=== PATIENT | male | born 1975 | race Caucasian/White ===

== ENCOUNTER 2023-02-12 11:33 | Observation (INO) ==
--- NOTE | 2023-02-12 11:45 | Emergency Department Note ---
Impression & Plan Deidra-rectal abscess, Low back pain ED Provider Note CHIEF COMPLAINT: Low back pain HISTORY OF PRESENT ILLNESS: This 48-year-old male patient presents to the emergency department [] complaining of pain in the low back which began 10 days ago. The pain was gradual in onset, is now constant and worse with movement. The pain is now radiating into the buttocks and getting progressively worse. Seems to be central buttocks area into the rectum and mildly radiating to the right side. Denies any constipation or diarrhea, but has pain with bowel movements. The patient notes the pain as sharp and a 10/10. The patient has taken Aleve with mild relief of the pain initially, but not anymore. Saw a chiropractor twice who thought the symptoms were secondary to sciatica, but the second time they saw him they were concerned about something different was going on. The patient denies any loss of control of their bowel or bladder functions. There has been no leg numbness or weakness, and no change in sensation. No nausea or vomiting or abdominal pain. No chest pain or shortness of breath. The patient has not had prior back injuries. No dysuria or increased urinary frequency. REVIEW OF SYSTEMS: A review of systems was performed with positives and pertinent negatives listed in the history of present illness. ALLERGIES: NKDA MEDICATIONS: None PMH: Denies significant past medical or surgical history PHYSICAL EXAM: VITALS: Vitals are noted on the nurse's note and reviewed by myself. GENERAL: Appears in pain, but non toxic in appearance and in no acute distress. Non-diaphoretic. SKIN: No obvious evidence for pilonidal abscess, buttocks abscess, or rectal abscess on visual exam. No erythema or fluctuance noted. The skin was without obvious rashes, erythema, edema, or bruising. EYES: Pupils equal round and reactive to light and accommodation. The Extraocul ar movements intact. NECK: Supple without nuchal rigidity. No cervical spine tenderness. No para spinous muscle tenderness. No lymphadenopathy. HEART: Regular rate and rhythm without murmurs gallops or rubs. LUNGS: Clear to auscultation bilaterally without wheezes, rales or rhonchi. ABDOMEN: Positive bowel sounds x 4. Normal tympanic percussion. Soft, nontender, without masses or organomegaly. Mar sign negative. MUSCULOSKELETAL: No muscle atrophy, erythema, or edema noted of the back. There is tenderness over the lower lumbar spinous processes and coccyx and mildly over the bilateral paraspinal muscles of the most inferior portion of the spine. There is no tenderness over the thoracic spine or paraspinous muscles. There are no muscle spasms present. The patient is slow to move around with maximum tenderness with sitting and full flexion of the spine. Negative straight leg raise test. RECTAL EXAM: Permission to perform the exam. Rn Emergency present for exam. No obvious external lesions noted, but there is mild erythema and edema surrounding the rectum. No external hemorrhoids. Normal sphincter tone, but the patient is very tender to palpation with the rectal exam. The patient also has tenderness to palpation surrounding the rectum, but no obvious drainable abscess noted. Internal hemorrhoids are not enlarged. No obvious masses, tears, fistulas, fissures, or other lesion noted, but the exam was difficult due to his degree of discomfort. Stool is brown and Hemoccult negative. NEURO: Patient was alert and oriented to person place and time. Normal sensa tion to light and sharp touch. Deep tendon reflexes 2+ in the lower extremities. Dorsalis pedis pulse 2+ bilaterally. Heel and toe walking is normal. EMERGENCY DEPARTMENT COURSE: I examined the patient. The patient's pain appears more secondary to the rectal area and lower spine and there is concern for perirectal abscess although none is noted on external visual exam. No obvious abscess felt on rectal exam, but exam was difficult due to the patient's degree of discomfort. I do not suspect emergent etiology such as conus medullaris syndrome, cauda equina syndrome, epidural abscess, or epidural hematoma. An IV lock was placed and labs were drawn. He was given 1 L normal saline solut ion bolus. He was given Toradol 15 mg IV for pain followed by morphine 4 mg IV and Zofran 4 mg IV. White blood cell count elevated at 19.18. Hemoglobin normal at 15.5. Sodium 134 and ALT 59, but CMP otherwise unremarkable. Urinalysis was negative. COVID was negative. CT scan of the lumbar spine was reviewed by myself and read by radiology as above and shows mild multilevel degenerative changes, but no acute fracture or subluxation. CT scan of the abdomen pelvis with IV contrast was reviewed by myself and read by radiology as above and shows a posterior perirectal abscess that measures 4.1 x 2.4 cm and extends from the 3:00 to 9 o'clock position. No supralevator component. There is also a 1.7 cm density arising from the anterior aspect of the pancreatic head. This likely reflects lobulated pancreatic parenchyma. A pancreatic lesion is considered less likely. Follow- up pancreatic protocol CT scan in 3 to 6 months is recommended. No other acute abnormalities. I spoke with Deandra CARTER and Dr. Crockett of general surgery who came down to the emergency department to evaluate the patient. They recommended surgical treatment of the patient's perirectal abscess. Please refer to their dictation for further details. He was given Zosyn 4.5 g IV. The patient was taken to the OR in stable condition. DIAGNOSIS: Perirectal abscess Low back pain Past Med/Surg History Medical History No pertinent past medical history Family History Other No pertinent family history Social History Smoking Status: Never smoker Hx Alcohol Use: Yes Alcohol type: beer Hx Substance Use: No Preferred Language: A[place]i Communication Ability: Effective Hearing Ability: Normal Medical Claims Examiner Required: No Beliefs That Will Affect Care: None Current Living Situation: Spouse current occupational status: employed Other Information That Helps Us Care for You: No Feels Safe at Home: Yes Safety Concerns: Feels Safe At This Time Assistive Devices: Glasses Assistive Devices Comment: reading glasses Allergies Allergies Allergy/AdvReac Type Severity Reaction Status Date / Time No Known Allergies Allergy Verified 02/12/23 16:51 Home Meds Home Medications Medication Instructions Recorded Confirmed No Known Home Medications 02/12/23 02/12/23 Results & Data (ED) Vital Signs Vital Signs - 24 hr 02/12/23 11:37 02/12/23 16:38 Temperature 36.6 C 38.4 C H Temperature Source Temporal Artery Scan Oral Pulse Rate 100 H Respiratory Rate 18 18 Respiratory Effort / Characteristics Non-Labored Spontaneous Respiratory Depth Normal Normal Respiratory Pattern Regular Blood Pressure 165/110 H Blood Pressure [Left Arm] 155/94 H Blood Pressure Mean 128 Blood Pressure Mean [Left Arm] 114 Blood Pressure Position [Left Arm] Right Lateral Pulse Oximetry 98 98 Oxygen Delivery Method Room Air Sepsis New/Unexplained Change in Mental Status No Sepsis Action Taken by Nursing No Action Required Laboratory Data 02/12/23 12:30 02/12/23 12:30 Lab Results 02/12/23 02/12/23 02/12/23 Range/Units 12:30 12:30 14:00 WBC 19.18 H (4.8-10.8) K/ul RBC 4.88 (4.70-6.10) M/uL Hgb 15.5 (14.0-18.0) g/dl Hct 44.8 (42.0-52.0) % MCV 91.8 (80.0-100.0) fL MCH 31.8 (25.0-34.0) pg MCHC 34.6 (32.0-36.0) g/dL RDW Std Deviation 39.5 (36.4-46.3) fL RDW Coeff of Ana 11.7 (11.5-14.5) % Plt Count 337 (130-400) K/uL MPV 8.9 L (9.4-12.4) fL Immature Gran % (Auto) 0.9 % Neut % (Auto) 79.2 % Lymph % (Auto) 10.4 % [place] % (Auto) 8.7 % Eos % (Auto) 0.3 % Baso % (Auto) 0.5 % Neut # (Auto) 15.20 H (1.40-6.50) K/uL Lymph # (Auto) 1.99 (1.2-3.4) K/uL [place] # (Auto) 1.67 H (0.11-0.59) K/uL Eos # (Auto) 0.05 (0-0.50) K/uL Baso # (Auto) 0.09 (0-0.2) K/uL Immature Gran # (Auto) 0.18 (0.01-0.20) K/uL Sodium 134 L (136-145) mmol/L Potassium 3.9 (3.5-5.1) mmol/L Chloride 97 L (98-107) mmol/L Carbon Dioxide 29 (21-32) mmol/L Anion Gap 8 (3-11) BUN 15 (6-23) mg/dl Creatinine 1.10 (0.6-1.4) mg/dl Est Cr Clr Drug Dosing 80.8 ml/min Est GFR ( Amer) 90.2 ml/min Est GFR (Non-Af Amer) 77.9 ml/min BUN/Creatinine Ratio 13.6 (10-20) Glucose 98 (70-99(Fasting)) mg/dl Calcium 9.5 (8.5-10.1) mg/dl Total Bilirubin 0.7 (0.2-1.0) mg/dl AST 29 (13-39) U/L ALT 59 H (7-52) U/L Alkaline Phosphatase 81 (34-104) U/L Total Protein 8.0 (6.0-8.3) gm/dl Albumin 4.3 (3.4-5.0) gm/dl Globulin 3.7 (2.5-4.0) gm/dl Albumin/Globulin Ratio 1.2 (0.9-2) Urine Color Yellow Urine Appearance Clear (Clear) Urine pH 5.5 (4.5-7.5) Ur Specific [place] 1.019 (1.000-1.030) Urine Protein Negative (Negative) Urine Glucose (UA) Negative (Negative) Urine Ketones Negative (Negative) Urine Blood Negative (Negative) Urine Nitrite Negative (Negative) Urine Bilirubin Negative (Negative) Urine Urobilinogen Negative (Negative) Ur Leukocyte Esterase Negative (Negative) Administered Medications Sodium Chloride (Nss 1000ml) 1,000 mls @ 100 mls/hr IV .Q10H [facility] Stop: 03/14/23 18:34 Last Admin: 02/12/23 20:14 Dose: 100 mls/hr Documented By: MAC Piperacillin Sod/Tazobactam (Sod 3.375 gm/ Dextrose) 115 mls @ 28.75 mls/hr IV Q8H [facility]; Protocol Stop: 02/22/23 21:59 Last Admin: 02/12/23 20:16 Dose: 28.8 mls/hr Documented By: MAC Discontinued Medications Bupivacaine HCl/Epinephrine Bitart (Bupivacaine/Epinephrine 0.25% 1:200,000 30 Ml Vial) Confirm Administered Dose 30 ml .ROUTE .STK-MED ONE Stop: 02/12/23 17:14 Last Admin: 02/12/23 17:33 Dose: 5 ml Documented By: [id number] Sodium Chloride (Nss 1000ml) 1,000 mls @ 999 mls/hr IV .Q1H1M [facility] Stop: 02/12/23 13:08 Last Infusion: 02/12/23 14:07 Dose: 0 mls/hr Documented By: Admin: 02/12/23 12:35 Dose: 999 mls/hr Documented By: KEREN Piperacillin Sod/Tazobactam Sod (Zosyn) 4.5 gm in 120 mls @ 240 mls/hr IV NOW ONE Stop: 02/12/23 16:42 Last Infusion: 02/12/23 19:54 Dose: 0 mls/hr Documented By: Admin: 02/12/23 17:05 Dose: 240 mls/hr Documented By: [id number] Ioversol (Optiray 350 100ml) 90 ml IV ONCE ONE Stop: 02/12/23 14:04 Last Admin: 02/12/23 14:03 Dose: 90 ml Documented By: CHEPE Ketorolac Tromethamine (Ketorolac Tromethamine 15 Mg/Ml Vial) 15 mg IV NOW STA Stop: 02/12/23 12:09 Last Admin: 02/12/23 12:35 Dose: 15 mg Documented By: KEREN Morphine Sulfate (Morphine Sulfate 4 Mg/Ml 1 Ml Carp\Vial) 4 mg IV NOW STA Stop: 02/12/23 16:30 Last Admin: 02/12/23 19:49 Dose: Not Given Documented By: LYNDON Ondansetron HCl (Ondansetron Inj 2 Mg/Ml 2 Ml Vial) 4 mg IV NOW STA Stop: 02/12/23 16:30 Last Admin: 02/12/23 19:49 Dose: Not Given Documented By: LYNDON Imaging Data Radiologist's Impression: Abdomen/Pelvis CT 02/12/23 12:08 CT OF THE ABDOMEN AND PELVIS WITH CONTRAST CLINICAL HISTORY: right flank pain, rectal pain - eval abscess COMPARISON STUDY: None. TECHNIQUE: Following IV administration of 90 mL of Optiray, axial images of the abdomen and pelvis were obtained from the lung bases to the proximal femurs. Images were reviewed in the axial, sagittal, and coronal planes. IV contrast was administered without complication. Automated exposure control was utilized for the study. A dose lowering technique was utilized adhering to the principles of ALARA. CT DOSE: 425.89 mGy.cm FINDINGS: Lung bases are unremarkable. No pneumatosis, free air or portal venous gas is present. There is hepatic steatosis. No hepatic lesions are identified. There is no biliary or pancreatic ductal dilatation. No pancreatic ductal dilatation is noted. There is a 1.7 cm apparent lobulation of the pancreatic head on axial image 142 of 501. This likely reflects pancreatic parenchyma. A pancreatic lesion is considered less likely. There is no evidence for a bowel o bstruction. Colonic diverticulosis is present. No evidence for acute diverticulitis. The appendix is normal. There is no lymphadenopathy. Note is made of a multiloculated posterior perirectal abscess that measures 4.1 x 2.4 cm. This extends from 3:00 to 9:00. No supralevator component is present. No additional abscesses are present. IMPRESSION: 1. Posterior perirectal abscess that measures 4.1 x 2.4 cm and extends from 3:00 to 9:00. No supralevator component. 2. 1.7 cm density arising from the anterior aspect of the pancreatic head. This likely reflects lobulated pancreatic parenchyma. A pancreatic lesion is considered less likely. A follow-up pancreatic protocol CT in 3-6 months is recommended. 3. No bowel obstruction. Normal appendix. ACT 112: Positive. There are findings on this exam that require communication between the performing entity and the patient following Patient Test Result Information Act ([place] Act 112) guidelines. Electronically signed by: David Mccarty M.D. 02/12/2023 2:[address] 02/12/23 12:08 CT lumbar spine w con CLINICAL HISTORY: low back pain COMPARISON STUDY: No previous studies for comparison. TECHNIQUE: Axial images of the lumbar spine were obtained following intravenous injection of 90 cc of Optiray 350. Sagittal and coronal reconstructions were viewed. Automated exposure control was utilized for the study. A dose lowering technique was utilized adhering to the principles of ALARA. FINDINGS: Alignment of the lumbar spine is anatomic. There is no fracture. There is no osseous lesion. Facet joints are intact. Disc spaces are preserved. Mild multilevel endplate osteophytosis and facet arthrosis is present. The central canal and neural foramen are suboptimally assessed given CT technique. However, there is no evidence for severe central canal stenosis. The abdomen and pelvis CT will be reported separately. IMPRESSION: 1. No lumbar spine fracture or subluxation. 2. Mild multilevel degenerative changes within the lumbar spine. ACT 112: Negative or not required by law. Electronically signed by: David Mccarty M.D. 02/12/2023 2:29 PM Discharge Plan Visit Data Chief Complaint: Back Injury/Pain Stated Complaint: BACK PAIN AND BUTT PAIN SEVERE ED Provider: Lee Cordoba ED Midlevel Provider: Loree Salcedo Discharge Problem: Deidra-rectal abscess, Low back pain Patient Disposition: Being Evaluated by Surgeon Condition: Good Discharge Instructions Interventions: ED Discharge Assessment Last Done: 02/12/23 16:33
[2023-02-12] MEDS ORDERED: KETOROLAC TROMETHAMINE 15 MG/ML VIAL IV STA (12:08)
[2023-02-12] MEDS ORDERED: SODIUM CHLORIDE 0.9% 1000ML 1,000 ML IV STA (12:08)
[2023-02-12 13:07] LABS: Basophils # (auto) 0.09 K/uL (0-0.2); Basophils % (auto) 0.5 %; Eosinophils # (auto) 0.05 K/uL (0-0.50); Eosinophils % (auto) 0.3 %; Hematocrit (blood only) 44.8 % (42.0-52.0); Hemoglobin 15.5 g/dl (14.0-18.0); Immature Granulocytes # (auto) 0.18 K/uL (0.01-0.20); Immature Granulocytes % (auto) 0.9 %; Lymphocytes # (auto) 1.99 K/uL (1.2-3.4); Lymphocytes % (auto) 10.4 %; Mean Corpuscular Hemoglobin 31.8 pg (25.0-34.0); Mean Corpuscular Hgb Conc 34.6 g/dL (32.0-36.0); Mean Corpuscular Volume 91.8 fL (80.0-100.0); Mean Platelet Volume 8.9 fL (9.4-12.4); Monocytes # (auto) 1.67 K/uL (0.11-0.59); Monocytes % (auto) 8.7 %; Neutrophils % (auto) 79.2 %; Platelet Count 337 K/uL (130-400); RDW Coefficient of Variation 11.7 % (11.5-14.5); RDW Standard Deviation 39.5 fL (36.4-46.3); Red Blood Count 4.88 M/uL (4.70-6.10); White Blood Count 19.18 K/ul (4.8-10.8)
[2023-02-12 13:26] LABS: Albumin Globulin Ratio 1.2 (0.9-2); Albumin Level 4.3 gm/dl (3.4-5.0); BUN Creatinine Ratio 13.6 (10-20); Bilirubin,Total 0.7 mg/dl (0.2-1.0); Calcium 9.5 mg/dl (8.5-10.1); Creatinine Clr Calc Pharmacy 80.8 ml/min; Est GFR (African American) 90.2 ml/min; Est GFR (Non-African American) 77.9 ml/min; Globulin 3.7 gm/dl (2.5-4.0); Potassium 3.9 mmol/L (3.5-5.1)
[2023-02-12] MEDS ORDERED: OPTIRAY 350 100ml IV ONE (14:03)
--- NOTE | 2023-02-12 14:29 | CT Scan Report ---
CT OF THE ABDOMEN AND PELVIS WITH CONTRAST CLINICAL HISTORY: right flank pain, rectal pain - eval abscess COMPARISON STUDY: None. TECHNIQUE: Following IV administration of 90 mL of Optiray, axial images of the abdomen and pelvis we re obtained from the lung bases to the proximal femurs. Images were reviewed in the axial, sagittal, and coronal planes. IV contrast was administered without complication. Automated exposure control wa s utilized for the study. A dose lowering technique was utilized adhering to the principles of ALARA . CT DOSE: 425.89 mGy.cm FINDINGS: Lung bases are unremarkable. No pneumatosis, free air or portal venous gas is present. Ther e is hepatic steatosis. No hepatic lesions are identified. There is no biliary or pancreatic ductal d ilatation. No pancreatic ductal dilatation is noted. There is a 1.7 cm apparent lobulation of the hendricks creatic head on axial image 142 of 501. This likely reflects pancreatic parenchyma. A pancreatic lesi on is considered less likely. There is no evidence for a bowel obstruction. Colonic diverticulosis is present. No evidence for acute diverticulitis. The appendix is normal. There is no lymphadenopathy. Note is made of a multiloculated posterior perirectal abscess that measures 4.1 x 2.4 cm. This extend s from 3:00 to 9:00. No supralevator component is present. No additional abscesses are present. IMPRESSION: 1. Posterior perirectal abscess that measures 4.1 x 2.4 cm and extends from 3:00 to 9:00. No supralev ator component. 2. 1.7 cm density arising from the anterior aspect of the pancreatic head. This likely reflects lobul ated pancreatic parenchyma. A pancreatic lesion is considered less likely. A follow-up pancreatic pro tocol CT in 3-6 months is recommended. 3. No bowel obstruction. Normal appendix. ACT 112: Positive. There are findings on this exam that require communication between the performing entity and the patient following Patient Test Result Information Act ([place] Act 112) guidelines. Electronically signed by: David Mccarty M.D. 02/12/2023 2:27 PM
--- NOTE | 2023-02-12 14:30 | CT Scan Report ---
CT lumbar spine w con CLINICAL HISTORY: low back pain COMPARISON STUDY: No previous studies for comparison. TECHNIQUE: Axial images of the lumbar spine were obtained following intravenous injection of 90 cc of Optiray 350. Sagittal and coronal reconstructions were viewed. Automated exposure control was utiliz ed for the study. A dose lowering technique was utilized adhering to the principles of ALARA. FINDINGS: Alignment of the lumbar spine is anatomic. There is no fracture. There is no osseous lesion . Facet joints are intact. Disc spaces are preserved. Mild multilevel endplate osteophytosis and face t arthrosis is present. The central canal and neural foramen are suboptimally assessed given CT techn ique. However, there is no evidence for severe central canal stenosis. The abdomen and pelvis CT will be reported separately. IMPRESSION: 1. No lumbar spine fracture or subluxation. 2. Mild multilevel degenerative changes within the lumbar spine. ACT 112: Negative or not required by law. Electronically signed by: David Mccarty M.D. 02/12/2023 2:29 PM
[2023-02-12 14:47] LABS: Appearance Urine Clear (Clear); Bilirubin Urine Negative (Negative); Blood Urine Negative (Negative); Color Urine Yellow; Glucose Urine UA Negative (Negative); Ketones Urine Negative (Negative); Leukocyte Esterase Urine Negative (Negative); Nitrite Urine Negative (Negative); Protein Urine Negative (Negative); Specific Gravity Urine 1.019 (1.000-1.030); Urobilinogen Urine Negative (Negative); pH Urine 5.5 (4.5-7.5)
[2023-02-12] MEDS ORDERED: PIPERACILLIN/TAZOBACTAM 4.5 GM/120 ML BAG IV ONE (16:13)
--- NOTE | 2023-02-12 16:20 | History & Physical Report ---
Date of Service February 12, 2023 Assessment & Plan (1) Osvaldo-rectal abscess: Plan: This is a 48yM with no significant PMH who presents to the [facility] ED on 02/12/23 with rectal pain that started 10 days ago that has progressively gotten worse. A CT a/p was obtained that revealed a posterior perirectal abscess that measures 4.1 x 2.4 cm and extends from 3:00 to 9:00. On exam there is no noticeable erythema noted to rectum. + fluctuance and tenderness to palpation of superior portion of rectum bilaterally. Patient's WBC 19. He is noted to be tachycardic. Discussed options with patient and OR schedule and we are able to perform the I&D of osvaldo rectal abscess this evening. He has been NPO. Will keep NPO with IVF and give pre-op abx. May require overnight admission for continued IV abx and post op monitoring. History of Present Illness Primary Care Provider: Micheal Gonzalez MD This is a 48yM with no significant PMH who presents to the [facility] ED on 02/12/23 with rectal pain. Patient states the pain started 10 days ago. It has gradually gotten worse. He reports pain with bowel movements, no blood in the stool. He has never had pain like this before. A CT a/p was obtained that revealed a posterior perirectal abscess that measures 4.1 x 2.4 cm and extends from 3:00 to 9:00. Patient denies fevers/chills. Last ate at 5am. Allergies Allergy/AdvReac Type Severity Reaction Status Date / Time No Known Allergies Allergy Verified 02/12/23 11:59 Past Med/Surg History Medical History No pertinent past medical history Family History Other No pertinent family history Social History Smoking Status: Never smoker Preferred Language: [place] Hearing Ability: Normal current occupational status: employed Feels Safe at Home: Yes Review of Systems Constitutional: no fever and no chills Respiratory: no dyspnea Cardiovascular: no chest pain Gastrointestinal: no blood in stools pain with bowel movements. rectal pain Physical Exam Physical Exam: awake/alert Respiratory: normal respiratory effort Gastrointestinal (Abdomen): No erythema noted to rectum. + fluctuance and tenderness to palpation of superior portion of rectum bilaterally Results & Data Results & Data Vital Signs (Past 12 Hours) Vital Signs Temp Pulse Resp BP Pulse Ox 02/12/23 11:37 36.6 C 100 H 18 165/110 H 98 Supervising Physician Co-Signing Physician Notes I personally saw and evaluated the patient with Deandra Madison PA-C and agree with the assessment and plan. 48-year-old male with perirectal abscess CT images and results personally viewed by myself He does have a posterior perirectal abscess that may involve both buttocks We will plan on incision and drainage of perirectal abscess in the operating room tonight Consent was obtained, risk discussed including bleeding, infection, nonhealing wound, fistula formation PG Care Time/CCT Total # of Minutes Spent Total Time Spent with Patient: Total time spent is greater than 50% in coordination of care (as documented) at patient's floor/unit and/or counseling patient: Coding Level of Care Code 49195 INT INP/OBS CARE 2/55MIN Diagnoses Osvaldo-rectal abscess K61.1
[2023-02-12] MEDS ORDERED: MIDAZOLAM HCL 1 MG/ML 2ML VIAL ONE (16:26)
[2023-02-12] MEDS ORDERED: PROPOFOL IV EMULSION 10 MG/ML 20 ML VIAL IV ONE ×2 (16:26→17:58)
[2023-02-12] MEDS ORDERED: LIDOCAINE 2% MPF LOCAL 5 ML VIAL INFIL ONE (16:26)
[2023-02-12] MEDS ORDERED: fentaNYL citrate PF 100 MCG/2 ML VIAL ONE (16:27)
--- NOTE | 2023-02-12 16:28 | Anesthesiology Consultation ---
Date of Service February 12, 2023 Assessment & Plan Chart Review Chart Review: Acceptable Risk for Surgery Consults Requested none History Surgery Operation Date: 02/12/23 09:10 Proposed Procedures p Incision and Drainage Perirectal Abscess - Robert Crockett DO Height/Weight Height: 5 ft 6 in Weight: 82.1 kg Allergies Allergy/AdvReac Type Severity Reaction Status Date / Time No Known Allergies Allergy Verified 02/12/23 11:59 Past Medical History Medical History No pertinent past medical history Past Family History Family History Other No pertinent family history Social History Smoking Status: Never smoker Physical Exam Vital Signs Last Vital Signs Temp 36.6 C 02/12/23 11:37 Pulse 100 H 02/12/23 11:37 Resp 18 02/12/23 11:37 BP 165/110 H 02/12/23 11:37 Pulse Ox 98 02/12/23 11:37 Testing Laboratory Results 02/12/23 12:30 02/12/23 12:30 Urine Color Yellow 02/12/23 14:00 Urine Appearance Clear (Clear) 02/12/23 14:00 Urine pH 5.5 (4.5-7.5) 02/12/23 14:00 Ur Specific [place] 1.019 (1.000-1.030) 02/12/23 14:00 Urine Protein Negative (Negative) 02/12/23 14:00 Urine Glucose (UA) Negative (Negative) 02/12/23 14:00 Urine Ketones Negative (Negative) 02/12/23 14:00 Urine Nitrite Negative (Negative) 02/12/23 14:00 Ur Leukocyte Esterase Negative (Negative) 02/12/23 14:00
[2023-02-12] MEDS ORDERED: ONDANSETRON INJ 2 MG/ML 2 ML VIAL IV STA (16:29)
[2023-02-12] MEDS ORDERED: MoRPHine SULFATE 4 MG/ML 1 ML CARP\\VIAL IV STA (16:29)
[2023-02-12] MEDS ORDERED: BUPIVACAINE/EPINEPHRINE 0.25% 1:200,000 30 ML VIAL ONE (17:13)
[2023-02-12] MEDS ORDERED: HYDROmorphone INJ 2 MG/ML SYR/VIAL ONE (17:39)
--- NOTE | 2023-02-12 17:42 | Post Operative Brief Note ---
PG Immediate Post Op with CF Date of Surgery February 12, 2023 Pre & Post Diagnosis Operation Date: 02/12/23 09:10 Pre-Op Diagnosis: perirectal abscess Post-Op Diagnosis: perirectal abscess I identified the patient and participated in the time-out.: Yes Procedure Operation Date: 02/12/23 09:10 Actual Procedures p Incision and Drainage Perirectal Abscess(Not Applicable) - Robert Crockett DO Surgeon Robert Crockett DO Chicken Cleaner None Estimated Blood Loss 10 Findings Consistent with Post-Op Diagnosis Specimens Specimen Description: Culture #1 perirectal abscess Anesthesia Type General Complications none Disposition Disposition: Recovery Room
--- NOTE | 2023-02-12 17:43 | Operative Report ---
PG Post Operative Report Pre & Post Diagnosis Operation Date: 02/12/23 09:10 Pre-Op Diagnosis: perirectal abscess Post-Op Diagnosis: perirectal abscess I identified the patient and participated in the time-out.: Yes Procedure Operation Date: 02/12/23 09:10 Actual Procedures p Incision and Drainage Perirectal Abscess(Not Applicable) - Robert Crockett DO Surgeon Robert Crockett, [place] [employer] None Estimated Blood Loss 10 Findings Consistent with Post-Op Diagnosis Specimens Perirectal abscess fluid for culture Drains None Anesthesia Type General Complications none Disposition Disposition: Recovery Room Indications 48-year-old male with perirectal abscess Description of Procedure The patient was brought to the OR and placed in the lithotomy position. At this time he underwent General LMA anesthesia without issue. He was given appropriate pre-operative antibiotics. The perineum was prepped and draped in the usual sterile fashion. A timeout was called. The procedure was verified as Incision and drainage of osvaldo-rectal abscess. Surgical, anesthesia and nursing teams agreed and the procedure was begun. Digital rectal exam was performed and no mass or fistula was found. After injection of 0.25% Marcaine with epinephrine, an incision was made directly over the most fluctuant area of abscess on the right buttock using a #15 blade scalpel. Purulent fluid was encountered. Wide drainage was ensured. All loculations were broken up bluntly. The abscess cavity was posterior and did track towards the midline. At this time the incision was irrigated until clear. Hemostasis was achieved using electrocautery. Hemostasis was complete. The incision was packed with half-inch iodoform packing. Sterile dressing was applied. The patient was awakened from anesthesia and taking to PACU having remained stable throughout the entire case. All needle and sponge counts correct x 2. I attest to the content of the Intraoperative Record and any orders documented therein. Any exceptions are noted below.
[2023-02-12] MEDS ORDERED: DEXAMETHASONE SOD INJ 4 MG/ML VIAL ONE (17:58)
[2023-02-12] MEDS ORDERED: ONDANSETRON INJ 2 MG/ML 2 ML VIAL ONE (17:58)
[2023-02-12] MEDS ORDERED: SUCCINYLCHOLINE CHLORIDE 20 MG/ML 10 ML VIAL IV ONE (17:58)
[2023-02-12] MEDS ORDERED: ePHEDrine sulfate 50 MG/ML AMP IV PRN (18:34)
[2023-02-12] MEDS ORDERED: fentaNYL citrate PF 100 MCG/2 ML VIAL IV PRN (18:34)
[2023-02-12] MEDS ORDERED: ONDANSETRON INJ 2 MG/ML 2 ML VIAL IV PRN ×2 (18:34→18:35)
[2023-02-12] MEDS ORDERED: ATROPINE SULFATE 0.1 MG/ML 10ML SYR IV PRN (18:34)
[2023-02-12] MEDS ORDERED: MoRPHine SULFATE 2 MG/ML CARP IV PRN (18:35)
[2023-02-12] MEDS ORDERED: oxyCODONE HCL IR 5 MG TAB (IMMEDIATE RELEASE) PO PRN ×2 (18:35)
[2023-02-12] MEDS ORDERED: MoRPHine SULFATE 4 MG/ML 1 ML CARP\\VIAL IV PRN (18:35)
[2023-02-12] MEDS ORDERED: ACETAMINOPHEN 325 MG TAB PO PRN (18:35)
--- NOTE | 2023-02-12 18:35 | Anesthesiology Progress Note ---
Date of Service February 12, 2023 Anesthesia Post Procedure Vital Signs Vital Signs: Temp Pulse Pulse Resp BP BP Pulse Ox 02/12/23 18:20 98.4 F 78 12 121/62 97 02/12/23 18:05 97.5 F L 83 22 129/85 93 02/12/23 17:54 97.5 F L 87 16 160/112 H 97 02/12/23 16:38 101.1 F H 18 155/94 H 98 02/12/23 11:37 97.9 F 100 H 18 165/110 H 98 O2 Del Method O2 Flow Rate 02/12/23 18:20 Room Air 02/12/23 18:05 Room Air 02/12/23 17:54 Oxymask 6 02/12/23 16:38 Room Air 02/12/23 11:37 Pain Intensity Buttock: Pain Intensity: 0 Transfer of Care Handoff Completed per policy Notes Mental Status: alert / awake / arousable and participated in evaluation Patient Amnestic to Procedure: Yes Nausea / Vomiting: adequately controlled Pain: adequately controlled Airway Patency, RR, SpO2: stable & adequate BP & HR: stable & adequate Hydration State: stable & adequate Anesthetic Complications: no major complications apparent and Pt Satisfied with anesthetic care
[2023-02-12] MEDS: SODIUM CHLORIDE 0.9% 1000ML 1,000 ML IV SCH (20:14)
[2023-02-12] MEDS: PIPERACILLIN/TAZOBACTAM 3.375 GM in DEXTROSE 5% 100 ML IV SCH (20:16)
[2023-02-13] MEDS: PIPERACILLIN/TAZOBACTAM 3.375 GM in DEXTROSE 5% 100 ML IV SCH ×2 (05:20→14:04)
[2023-02-13] MEDS: SODIUM CHLORIDE 0.9% 1000ML 1,000 ML IV SCH (06:14)
--- NOTE | 2023-02-13 08:48 | Surgery Progress Note ---
Date of Service February 13, 2023 Assessment & Plan (1) Osvaldo-rectal abscess: Plan: POD#1 I&D of osvaldo rectal abscess VSS. patient is feeling much improvement in pain and has no complaints d/c IVF. continue IV abx while in house will evaluated dressing later on today with surgeon and change possible dispo to home later today on a course of PO abx warm tub soaks at home f/u in clinic within 1-[address] arenas Admission and Anticipated Discharge Date Admission Date: February 12, 2023 Supervising Physician Co-Signing Physician Notes I personally saw and evaluated the patient with Deandra Madison PA-C and agree with the assessment and plan. 48-year-old male with perirectal abscess, postoperative day 1 incision and drainage Packing replaced at bedside His pain is much better He is afebrile We will discharge him home today with 10-day course of Augmentin and I will see him back in 1 week We will continue packing changes once daily until that time Subjective Patient states he is feeling well. Says his pain is 99% better. tolerating diet. eager to be discharged. says outer dressing needed changed early this AM, otherwise no issues with his bottom. Physical Exam Physical Exam: awake/alert, no distress Gastrointestinal (Abdomen): dressings intact Results & Data Vital Signs (Past 12 Hours) Vital Signs Temp Pulse Resp BP Pulse Ox O2 Del Method 02/13/23 07:48 36.6 C 68 18 146/93 H 98 Room Air 02/13/23 04:12 36.8 C 52 L 18 123/77 97 Room Air 02/12/23 21:05 36.7 C 79 18 129/74 96 Room Air PG Care Time/CCT Total # of Minutes Spent Total Time Spent with Patient: Total time spent is greater than 50% in coordination of care (as documented) at patient's floor/unit and/or counseling patient: Coding Level of Care Code 30776 Post Operative Follow-Up Diagnoses Osvaldo-rectal abscess K61.1
--- NOTE | 2023-02-17 12:03 | Discharge Summary ---
Date of Service February 13, 2023 Admission HPI Per Admitting Provider This is a 48yM with no significant PMH who presents to the [facility] ED on 02/12/23 with rectal pain. Patient states the pain started 10 days ago. It has gradually gotten worse. He reports pain with bowel movements, no blood in the stool. He has never had pain like this before. A CT a/p was obtained that revealed a posterior perirectal abscess that measures 4.1 x 2.4 cm and extends from 3:00 to 9:00. Patient denies fevers/chills. Last ate at 5am. Principal Diagnosis deidra rectal abscess Discharge Exam awake/alert, no distress Respiratory normal respiratory effort Gastrointestinal (Abdomen) buttocks wound packing removed, some serosang drainage noted, re-packed. improved discomfort Discharge Data Allergies Allergy/AdvReac Type Severity Reaction Status Date / Time No Known Allergies Allergy Verified 02/12/23 16:51 Consultations 02/12/23 16:13 ED Decision to Admit Stat Procedures Performed Operation Date: 02/12/23 09:10 Actual Procedures p Incision and Drainage Perirectal Abscess(Not Applicable) - Robert Crockett, Ordered Studies 02/12/23 12:08 CT abd pelvis IV con only Stat CT lumbar spine w con Stat Hospital Course (1) Deidra-rectal abscess: This is a 48y M who presented to the [facility] ED on 02/12/23 with complaints of buttock pain. A CT a/p was performed that revealed evidence of a 4x2cm deidra- rectal abscess. WBC 19. The patient was kept NPO with IVF and started on IV abx. He was booked for the OR with Dr. Crockett and ultimately underwent an I&D of perirectal abscess. This was packed with a dressing. Post operatively the patient's diet was advanced as tolerated, pain remained well controlled on prn meds, and he continued on IV abx. On POD#1 patient's packing was removed and replaced without issues. He felt vast improvement in his symptoms. He was instructed to continue daily packing for at least the next week with his significant other's assistance. He was deemed stable for discharge to home with plans to follow up in clinic within 1 week and continue on a course of po abx. Total Time Total Time Spent Total Time Spent (In Minutes): 15 Discharge Plan Discharge Items Patient Disposition: Home - Self-Care Reason For Visit: BACK PAIN AND BUTT PAIN SEVERE Discharge Diagnosis: incision and drainage of deidra rectal abscess Condition on Discharge: Good Activity: Per Instructions section Lifting: Gradually increase as tolerated Bathing: No limitations Bathing Comment: no submerging in pools Exercise/Sports: Wait until after follow-up appointment Driving/Machine Use: no driving if on narcotics for pain Non-emergency contact: Surgeon Call non-emergency contact if: you have any medication questions, your symptoms worsen, your pain is not controlled, you have a fever, your temperature is above 101.5, your wound has increased redness, your wound has increased drainage and your wound pain has increased Follow-up/Referrals: Robert Crockett DO [Physician] - 02/19/23 10:00 am (Please call to schedule follow up within 1 week) Micheal Gonzalez MD [Primary Care Provider] - Diet: Regular Addtl Attending Provider Instructions: You may take warm tub soaks 3-4x/daily to help with pain and cleansing of the area change packing once daily and as needed with iodoform nu-gauze, cover with dry 4x4 gauze and ABD pad. can continue to wear mesh or compressive undergarments to keep dressings in place complete full course of antibiotic prescribed to you Pending Studies at Discharge: No Stand-Alone Forms: My [facility] [employer] Smoking Cessation Medications and DC Order Prescriptions: New oxycodone 5 mg tablet 5 - 10 mg PO .[id number] PRN (Reason: pain, for initial therapy, max 6 tabs per day) Qty: 15 0RF amoxicillin-pot clavulanate 875-125 mg tablet 1 tab PO Q12H 10 Days Qty: 20 0RF Discharge Orders: Discharge Order (Routine); Ordered 02/13/23 Ordered By: Deandra Madison Admission Data Admit Date/Time: 02/12/23 17:47 Attending Provider: Robert Crockett Admit Provider: Rboert Crockett Primary Care Provider: Micheal Gonzalez Other Providers: Robert Crockett Other Interventions: Discharge Summary Assessment (RN) Last Done: 02/13/23 16:38 Coding Level of Care Code 16505 IN/OBS DISCH 30 MIN/LESS Diagnoses Deidra-rectal abscess K61.1
== END 2023-02-13 16:58 | disposition home or self-care (01) ==
LOC: ED 11:33 → OR 16:33 → 3E 17:47 → INTOOBSV 17:47
DX: K61.1 Rectal abscess